=== PATIENT | male | born 1995 | race African-American/Black ===

== ENCOUNTER 2021-02-12 18:35 | Emergency (ER) | payer MEDICAID, OTHER ==
[~2021-02-12] VITALS: Ht 177.8 cm; Wt 90.7 kg
[2021-02-12] MEDS ORDERED: KETOROLAC TROMETH 60MG/2ML VIAL IM ONE (22:45)
[2021-02-13 00:01] VITALS: BP 116/83
== END 2021-02-12 23:24 | disposition home or self-care (01) ==
LOC: ER 18:35
DX: M54.5 Low back pain (principal); M79.18 Myalgia, other site; F12.10 Cannabis abuse, uncomplicated
CPT/HCPCS: 96372; 99283; J1885